=== PATIENT | female | born 1965 | race Caucasian/White ===

== ENCOUNTER → 2017-11-03 09:13 | Outpatient (CLI) | payer OTHER, SELFPAY ==
--- NOTE | 2017-11-03 07:21 | HPBI_ITS ---
MAMMOGRAPHY - BILATERAL SCREENING REASON FOR EXAM: Female, 52 years old. Routine annual screening examination. PERTINENT HISTORY: Personal history of breast cancer. Prior right lumpectomy with radiation and chemotherapy. Right axillary node dissection. TECHNIQUE: Digital bilateral breast pascual (3D mammographic acquisition) in the CC and MLO projections. 2-D mediolateral oblique (MLO) and craniocaudad (CC) views of both breasts were obtained. CAD: Full Field Digital Mammography with Computer Added Detection was performed. COMPARISON: Comparison is made with prior study if every 2016 and October 27, 2015. FINDINGS: Breast Composition: The breasts are heterogeneously dense, which may obscure small masses. There are no dominant masses or suspicious calcifications. Architectural distortion in the deep upper lateral portion of the right breast atypia with prior lumpectomy. Surgical clips are seen in the right axillary region. There has been no change. No other significant abnormalities are identified. There has been no significant change since the prior study. HPBI/SCREENING MAMM (CAD), BILAT IMPRESSION: Stable bilateral screening mammogram. Yearly follow-up mammogram recommended. (A) ASSESSMENT CATEGORY: BIRADS Category 2: Benign. A letter regarding these results will be sent to the patient by the facility within 30 days. Approximately 10% of breast cancers are not detected by mammography. A normal mammogram should not delay biopsy of a clinically suspicious abnormality. [id number] Electronically Signed: Serge Hutchinson MD at 9:58 EST Tel [phone], Service support ,
== END ==
PROVIDERS: Family Provider Family Medicine; PCP Family Medicine; Visit Provider Internal Medicine Hematology & Oncology
DX: Z12.31 Encounter for screening mammogram for malignant neoplasm of breast (principal); C50.411 Malignant neoplasm of upper-outer quadrant of right female breast; Z17.0 Estrogen receptor positive status [ER+]
CPT/HCPCS: 77063; 77067

== ENCOUNTER → 2018-03-22 08:53 | Outpatient (CLI) | payer OTHER, SELFPAY ==
--- NOTE | 2018-03-22 08:57 | BI_ITS ---
STUDY: UNILATERAL DIAGNOSTIC RIGHT MAMMOGRAM REASON FOR EXAM: Female, 53 years old. Follow-up study, redness and fluid drainage at scar site x1 week TECHNIQUE: 2D MLO and cc views along with 3-D pascual synthesis views of the right breast. COMPARISON: 11/03/2017 FINDINGS: Stable appearance of a scar in the upper outer quadrant of the right breast. It has become more organized and less diffuse than on the previous study. Stable architectural distortion from the previous surgery. No new suspicious solid mass. However, because the patient is complaining of redness and fluid drainage in the site of the scar, further evaluation of this area with ultrasound is recommended. BI/DIAG MAMM W/CAD, UNILAT IMPRESSION: No mammographic evidence of abnormality. Further evaluation of the right breast scar with ultrasound recommended as there is redness and fluid drainage here. BIRADS Category 0 Electronically Signed: Jean Harmon MD at 11:38 EDT , Service support ,
--- NOTE | 2018-03-22 08:57 | US_ITS ---
STUDY: ULTRASOUND BREAST - RIGHT REASON FOR EXAM: Female, 53 years old. Skin thickening, tenderness at scar site TECHNIQUE: Axial and longitudinal images of the RIGHT breast were performed with a high resolution ultrasound transducer. COMPARISON: None. FINDINGS: RIGHT Breast: Ultrasound evaluation of the right breast, in the area of concern shows a large area of shadowing measuring 2.7 x 3.4 x 1.8 cm consistent with patient's surgical site as a clip is noted in this area. There is no discrete shadowing solid lesion. There is associated skin thickening and some hyperemia suggesting there is inflammation. US/Breast Limited Unilateral IMPRESSION: Skin thickening and hyperemia at the site of patient's scar suggesting inflammatory process. Recommend short-term follow-up after therapy to assure resolution. No suspicious shadowing solid lesion or calcification ASSESSMENT CATEGORY: BIRADS Category 3: Probably Benign - Short-Interval Follow-up Suggested. A letter regarding these results will be sent to the patient by the facility within 30 days. Electronically Signed: Jean Harmon MD at 10:49 EDT , Service support ,
== END ==
PROVIDERS: Family Provider Family Medicine; PCP Family Medicine; Visit Provider Internal Medicine Hematology & Oncology
DX: C50.411 Malignant neoplasm of upper-outer quadrant of right female breast (principal); Z17.0 Estrogen receptor positive status [ER+]
CPT/HCPCS: 76642; 77061; 77065; G0279

== ENCOUNTER → 2018-08-21 09:34 | Outpatient (CLI) | payer OTHER, SELFPAY ==
--- NOTE | 2018-08-21 08:20 | BRBX_PTH ---
PATIENT: VANESSA PRO LOC: [facility] U#:[id number] AGE/SX: 60/F ROOM: RE08/21/[address]: Dr. Den Childress MD : 1965 BED: DIS: SPEC #: [id number] RECD: 08/21/18 09:36 STATUS: DEEPTHI OLI #: [id number] DEENA: 08/21/18 08:[address]: Den Childress DEPT: SURGICAL PATHOLOGY RECD BY: Koko Poon ENTERED: 08/21/18 13:14 SP TYPE: BREAST BX OTHR DR: Dr. Loyd White MD Tissues: A - Right breast, NOS B - Skin of breast, NOS Procedures: Surgery Specimen Level IV HEADER OPERATION: Excisional biopsy right breast; punch biopsy PRE-OP DIAGNOSIS: Right breast lesion TISSUE SUBMITTED: A - Right breast tissue, B - Punch biopsy right breast ISCHEMIC TIME: 1 minute MICROSCOPIC DIAGNOSIS A. Right breast tissue, excisional biopsy: Chronic inflammation of dermis and subcutaneous tissue. Negative for malignancy. B. Right breast, punch biopsy: Acute and chronic vasculitis. See comment. Negative for malignancy. ANTHONY:eb 08/23/18 COMMENT B. 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 Numerous eosinophils along with plasma cells, neutrophils and polymorphous lymphocytes are present in perivascular distribution with vascular damage in reticular and deep dermis. Correlation with clinical findings and appropriate follow up are necessary. Please make reference to previous specimen ([id number]) right breast, core biopsy with diagnosis of invasive ductal carcinoma and ([id number]) right breast, lumpectomy with needle localization with diagnosis of invasive ductal carcinoma, multifocal. Case has been reviewed in consultation with Dr. Irene who concurs with the above diagnosis. IDC:SJ MICROSCOPIC DESCRIPTION Slides are reviewed. GROSS DESCRIPTION A - Received in fixative is one container labeled with the patient's name and designated right breast. The specimen consists of a wedge-shaped piece of isaac-white skin with underlying tissue measuring 0.5 x 0.5 cm and up to 0.8 cm in thickness. The specimen is inked, bisected and submitted entirely in one cassette. B - Received in fixative is one container labeled with the patient's name and designated right breast punch biopsy. The specimen consists of a punch biopsy of isaac-white skin measuring 0.2 cm in diameter and up to 0.6 cm in length. The entire specimen is submitted in one cassette. / SJ:rg 08/21/18 TC:2 CPT: 27508 x2
== END ==
PROVIDERS: Family Provider Family Medicine; PCP Family Medicine; Referring Provider Surgery; Visit Provider Surgery
DX: S21.001A Unspecified open wound of right breast, initial encounter (principal); N64.89 Other specified disorders of breast
CPT/HCPCS: 87070; 87205; 88305

== ENCOUNTER 2018-11-11 00:57 | Emergency (ER) | payer OTHER, SELFPAY ==
[2018-11-11 00:57] VITALS: BP 153/78; PULSE 94; RESP 16; TEMP 36.9; O2SAT 97; BMI 28.2
[2018-11-11 02:17] LABS: Absolute Neutrophil Count 4.1 X10^3/uL (2.0-7.7); Basophil# 0.02 X10^3/uL; Basophil% 0.4 % (0-1); Eosinophil# 0.04 X10^3/uL; Eosinophils% 0.8 % (0-5); Hematocrit 39.9 % (37-47); Hemoglobin 12.9 g/dl (12.0-15.0); Lymphocyte % 11.3 % (19-41); Mean Corp Hgb Conc 32.3 g/gl (32-36); Mean Corpuscular Hgb 30.1 pg (27.0-32.0); Mean Corpuscular Volume 93.2 fL (81-99); Mean Platelet Vol. 9.2 fl (6.2-12.0); Monocyte# 0.51 X10^3/uL; Monocyte% 9.6 % (0-10); Neutrophil # 4.13 X10^3/uL (2.7-7.7); Neutrophil % 77.7 % (47-70); Platelet Count 230 K/mm3 (150-450); RBC Distribution Width CV 13.5 % (11.6-14.6); RBC Distribution Width SD 44.7 fl (35.1-43.9); Red Blood Count 4.28 M/mm3 (4.2-5.4); White Blood Count 5.3 K/mm3 (4.4-11.0)
[2018-11-11] MEDS: Cefazolin 1 GM/50 ML BAG IV (02:18)
[2018-11-11 02:29] LABS: POSITIVE COUNT NO; POSITIVE DIFFERENTIAL YES; POSITIVE MORPHOLOGY NO
[2018-11-11 02:30] LABS: Differential Indicated SCAN CRITERIA MET
[2018-11-11 02:39] LABS: Anion Gap 6 (5-15); BUN 18 mg/dL (7-18); BUN/Creat Ratio 24.4 RATIO (10-20); Calcium,Total 8.8 mg/dL (8.5-10.1); Chloride 108 mmol/L (98-107); Creatinine, Serum 0.74 mg/dL (0.55-1.02); EST Glomerular Filtration Rate 87 mL/min (>60); Est Glom Filt Rate - Afr Amer 105 mL/min (>60); Estimated Creatinine Clearance 80.41 ml/min; Glucose 98 mg/dL (74-106); Potassium 3.4 mmol/L (3.5-5.1); Sodium Level 140 mmol/L (136-145)
--- NOTE | 2018-11-11 03:04 | ED.DCSUM_ITS ---
History of Present Illness Chief Complaint: Cellulitis Onset: Today Context: Gradual Onset Timing: Continuous Quality: sore Location: right breast Current Severity: Mild Maximum Severity: Mild Worsened by: palpation Associated Symptoms: chills earlier today; otherwise, none. no nipple discharge. Narrative: Patient has a remote history of breast cancer and treatment. She is currently undergoing no treatment. She has had lymphedema of the breast before that she usually can treat herself, she felt some swelling and thought that is what it was earlier until she looked at her breast and noticed it was very red around the outside of it. A few hours later the redness had spread to more of the breast. She denies any systemic symptoms at this time, had some chills earlier in the day but they resolved. - Past Medical History (1) Breast cancer Status: Chronic Past Medical History - Allergies and Home Meds Allergies/Adverse Reactions: Allergies exemestane Allergy (Mild, Verified 11/11/18 01:02) rash Penicillins Allergy (Verified 11/11/18 01:02) Rash Primary Care Physician: Francisco White MD [Primary Care Provider] - Surgical History: - - Right breast lumpectomy Lives: Spouse/ Significant Other Smoking Status: Never smoker Review of Systems General: Reports: Chills. Denies: Fever, Malaise Respiratory: Denies: Dyspnea, Cough Gastrointestinal: Denies: Nausea, Vomiting, Diarrhea Skin: Reports: Rash - Redness right breast Physical Exam Vital Signs/Narrative: Vital Signs Temp Pulse Resp BP Pulse Ox 11/11/18 00:57 98.4 F 94 16 153/78 H 97 Inital Vital Signs reviewed: Yes General: Well nourished, Well developed, No Acute Distress Head: Normocephalic, Atraumatic Skin: No Trauma, Rash - Patchy tender blanching erythema throughout the right breast. Areola appears to be spared, there is no nipple discharge. There is no palpable abscess. There is no lymphangitis. There are no bullae or other lesions. There is no peau d'orange appearance or other dimpling of the breast. Neurological: Alert, Oriented x3, Cranial nerves II-XII grossly intact, Normal Strength, Normal Sensation, Normal Gait Psychological: Normal affect, Normal Mood Diagnostic/Tx/Re-eval Laboratory Results 11/11/18 11/11/18 02:10 02:10 WBC 5.3 RBC 4.28 Hgb 12.9 Hct 39.9 MCV 93.2 MCH 30.1 MCHC 32.3 RDW 13.5 RDW Differential 44.7 H Plt Count 230 MPV 9.2 Immature Gran % (Auto) 0.200 Neut % (Auto) 77.7 H Lymph % (Auto) 11.3 L [place] % (Auto) 9.6 Eos % (Auto) 0.8 Baso % (Auto) 0.4 Absolute Neuts (auto) 4.1 Absolute Lymphs (auto) 0.60 L Total Counted Not Reportable Sodium 140 Potassium 3.4 L Chloride 108 H Carbon Dioxide 26.0 Anion Gap 6 BUN 18 Creatinine 0.74 Estim Creat Clear Calc 80.41 Est GFR (MDRD) Af Amer 105 Est GFR (MDRD) Non-Af 87 BUN/Creatinine Ratio 24.4 H Glucose 98 Calcium 8.8 - Medical Decision Making Labs show a very normal white blood count of 5.3, there is a slight leftward shift, no bandemia. This has the appearance like it is infection, I think the patient is right. She thinks she has cellulitis and I agree. We did discuss the possibility of inflammatory breast cancer/recurrence, and the need for close outpatient follow-up. There is no sign of an abscess and I do not think she has to be admitted at this time. She was given a dose of IV Ancef. On reevaluation, there has been no significant spread of the cellulitis compared to my initial evaluation. Prescribed cephalexin which she has taken successfully in the past, and although she has a penicillin allergy she had no reaction to the Ancef. Advised to follow-up after the weekend with her doctor and she is amenable and agrees with the plan. ED Disposition - Plan for ED Patient: Disposition: Home or Assisted Living Diagnosis: Cellulitis of right breast Instructions: Discharge Instructions for Cellulitis, ED Breast Infec Prescriptions: Cephalexin [Keflex] 500 mg PO Q6 #40 capsule Referrals: Francisco White MD [Primary Care Provider] - (2-3 days)
[2018-11-11 03:09] VITALS: BP 148/78; PULSE 86; RESP 16; O2SAT 98
== END 2018-11-11 03:11 | disposition home or self-care (01) ==
PROVIDERS: Emergency Provider Emergency Medicine; Family Provider Family Medicine; PCP Family Medicine
DX: N61.0 Mastitis without abscess (principal); Z85.3 Personal history of malignant neoplasm of breast
CPT/HCPCS: 80048; 85025; 96365; 99284; J7050; A4216

== ENCOUNTER → 2018-11-21 07:20 | Outpatient (CLI) | payer OTHER, SELFPAY ==
[2018-11-11 00:57] VITALS: BMI 28.2
--- NOTE | 2018-11-21 06:59 | BI_ITS ---
MAMMOGRAPHY - BILATERAL SCREENING REASON FOR EXAM: Female, 53 years old. Routine annual screening examination. PERTINENT HISTORY: Personal history of breast cancer. Prior right lumpectomy with radiation and chemotherapy. TECHNIQUE: Digital bilateral breast pascual (3D mammographic acquisition) in the CC and MLO projections. 2-D mediolateral oblique (MLO) and craniocaudad (CC) views of both breasts were obtained. CAD: Full Field Digital Mammography with Computer Added Detection was performed. COMPARISON: Comparison is made with prior study dated November 03, 2017 and March 22, 2018. FINDINGS: Breast Composition: The breasts are heterogeneously dense, which may obscure small masses. There are no dominant masses or suspicious calcifications. The patient status post lumpectomy in the upper deep lateral portion of the right breast with resultant architectural distortion and breast deformity. Surgical clips are also seen in the right axillary region. There has been essentially no change. Stable appearance of the bilateral axillary lymph nodes. No other significant abnormalities are identified. There has been no significant change since the prior study. BI/SCREENING MAMM (CAD), BILAT IMPRESSION: Stable bilateral screening mammogram. Yearly follow-up mammogram recommended. (A) ASSESSMENT CATEGORY: BIRADS Category 2: Benign. A letter regarding these results will be sent to the patient by the facility within 30 days. Approximately 10% of breast cancers are not detected by mammography. A normal mammogram should not delay biopsy of a clinically suspicious abnormality. [id number] Electronically Signed: Serge Hutchinson, at 9:42 EDT , Service support ,
== END ==
PROVIDERS: Family Provider Family Medicine; PCP Family Medicine; Referring Provider Nurse Practitioner; Visit Provider Nurse Practitioner
DX: Z12.31 Encounter for screening mammogram for malignant neoplasm of breast (principal); C50.411 Malignant neoplasm of upper-outer quadrant of right female breast; Z17.0 Estrogen receptor positive status [ER+]
CPT/HCPCS: 77062; 77067; G0279

== ENCOUNTER → 2019-03-14 11:35 | Outpatient (CLI) | payer OTHER, SELFPAY ==
[2019-03-14 14:37] LABS: Cholesterol 206 mg/dL (200); High Density Lipoprotein 68 mg/dL; Thyroid Stim Hormone (TSH) 1.09 uIU/mL (0.358-3.74); Triglycerides 133 mg/dL; Very Low Density Lipoprotein 27 mg/dL (5-40)
[2019-03-14 14:39] LABS: Vitamin D,25 Hydroxy 31.8 ng/mL (29.95-100.01)
== END ==
PROVIDERS: Family Provider Family Medicine; PCP Family Medicine; Referring Provider Family Medicine; Visit Provider Family Medicine
DX: Z13.220 Encounter for screening for lipoid disorders (principal); Z13.29 Encounter for screening for other suspected endocrine disorder; Z13.21 Encounter for screening for nutritional disorder
CPT/HCPCS: 36415; 80061; 82306; 84443

== ENCOUNTER → 2019-11-23 07:46 | Outpatient (CLI) | payer OTHER, SELFPAY ==
--- NOTE | 2019-11-23 08:11 | BI_ITS ---
MAMMOGRAPHY - BILATERAL SCREENING REASON FOR EXAM: Female, 54 years old. Routine annual screening examination. PERTINENT HISTORY: Personal history of breast cancer. Prior right lumpectomy with radiation and chemotherapy. TECHNIQUE: Digital bilateral breast vicenta (3D mammographic acquisition) in the CC and MLO projections. 2-D mediolateral oblique (MLO) and craniocaudad (CC) views of both breasts were obtained. CAD: Full Field Digital Mammography with Computer Added Detection was performed. COMPARISON: Comparison is made with prior examination dated November 21, 2018 and March 22, 2018. FINDINGS: Breast Composition: The breasts are heterogeneously dense, which may obscure small masses. There are no dominant masses or suspicious calcifications. Once again, the patient is status post lumpectomy in the upper deep lateral portion of the right breast. Stable resultant architectural distortion at the surgical site as well as breast deformity. Surgical clips are also seen in the right axillary region. There has been no change. No other significant abnormalities are identified. There has been no significant change since the prior study. BI/SCREEN MAMM (CAD) W/VICENTA BILAT IMPRESSION: Stable bilateral screening mammogram. Yearly follow-up mammogram recommended. (A) ASSESSMENT CATEGORY: BIRADS Category 2: Benign. A letter regarding these results will be sent to the patient by the facility within 30 days. Approximately 10% of breast cancers are not detected by mammography. A normal mammogram should not delay biopsy of a clinically suspicious abnormality. [id number] Electronically Signed: Serge Hutchinson, at 9:31 EDT , Service support ,
== END ==
PROVIDERS: PCP Family Medicine; Referring Provider Internal Medicine Hematology & Oncology; Visit Provider Internal Medicine Hematology & Oncology
DX: Z12.31 Encounter for screening mammogram for malignant neoplasm of breast (principal); C50.411 Malignant neoplasm of upper-outer quadrant of right female breast; Z17.0 Estrogen receptor positive status [ER+]
CPT/HCPCS: 77063; 77067

== ENCOUNTER → 2020-11-24 07:01 | Outpatient (CLI) | payer OTHER, SELFPAY ==
--- NOTE | 2020-11-24 07:04 | BI_ITS ---
MAMMOGRAPHY - BILATERAL SCREENING REASON FOR EXAM: Female, 55 years old. Routine annual screening examination. PERTINENT HISTORY: Personal history of breast cancer. Prior right lumpectomy with radiation and chemotherapy. Occasional tenderness. TECHNIQUE: Digital bilateral breast vicenta (3D mammographic acquisition) in the CC and MLO projections. 2-D mediolateral oblique (MLO) and craniocaudad (CC) views of both breasts were obtained. CAD: Full Field Digital Mammography with Computer Added Detection was performed. COMPARISON: Comparison is made with prior study of 11/23/2019 and 11/21/2018. FINDINGS: Breast Composition: The breasts are heterogeneously dense, which may obscure small masses. There are no dominant masses or suspicious calcifications. Stable architectural deformity and postoperative changes in the axillary region of the right breast with the skin thickening. Surgical clips are seen in the right axillary region. No other significant abnormalities are identified. There has been no significant change since the prior study. BI/SCRN MAMM (CAD)W/VICENTA BILAT IMPRESSION: Stable bilateral screening mammogram. Yearly follow-up mammogram recommended. (A) ASSESSMENT CATEGORY: BIRADS Category 2: Benign. A letter regarding these results will be sent to the patient by the facility within 30 days. Approximately 10% of breast cancers are not detected by mammography. A normal mammogram should not delay biopsy of a clinically suspicious abnormality. [id number] Electronically Signed: Serge Hutchinson MD at 8:32 EDT , Service support ,
== END ==
PROVIDERS: PCP Family Medicine; Referring Provider Nurse Practitioner; Visit Provider Nurse Practitioner
DX: Z12.31 Encounter for screening mammogram for malignant neoplasm of breast (principal)
CPT/HCPCS: 77063; 77067

== ENCOUNTER → 2021-03-10 12:12 | Outpatient (CLI) | payer OTHER, SELFPAY ==
[2021-03-10 15:24] LABS: Hemoglobin 13.5 g/dL (12.0-15.0); Mean Corp Hgb Conc 32.9 g/dL (32-36); Mean Corpuscular Hgb 30.1 pg (27.0-32.0); Mean Corpuscular Volume 91.5 fL (81-99); Mean Platelet Vol. 9.5 fl (6.2-12.0); Platelet Count 301 K/mm3 (150-450); RBC Distribution Width CV 12.9 % (11.6-14.6); Red Blood Count 4.48 M/mm3 (4.2-5.4); White Blood Count 6.2 K/mm3 (4.4-11.0)
[2021-03-10 15:38] LABS: Vitamin D,25 Hydroxy 35.2 ng/mL
[2021-03-10 15:49] LABS: Anion Gap 6 (5-15); BUN 19 mg/dL (7-18); BUN/Creat Ratio 25.7 RATIO (10-20); Calcium,Total 10.7 mg/dL (8.5-10.1); Chloride 105 mmol/L (98-107); Cholesterol 199 mg/dL (200); Creatinine, Serum 0.74 mg/dL (0.55-1.02); EST Glomerular Filtration Rate 86 mL/min (>60); Est Glom Filt Rate - Afr Amer 104 mL/min (>60); Glucose 75 mg/dL (74-106); High Density Lipoprotein 71 mg/dL; Potassium 3.8 mmol/L (3.5-5.1); Sodium Level 136 mmol/L (136-145); Thyroid Stim Hormone (TSH) 1.13 uIU/mL (0.358-3.74); Triglycerides 118 mg/dL; Very Low Density Lipoprotein 24 mg/dL (5-40)
[2021-03-12 20:11] LABS: Endomysial Antibody IgA Negative (Negative)
[2021-03-13 08:19] LABS: Deamidated Gliadin IgA 4 units (0-19); Deamidated Gliadin IgG 2 units (0-19); Immunoglobulin A 366 mg/dL (87-352); t-Transglutaminase IgA <2 U/mL (0-3)
[2021-03-14 20:08] LABS: Beef <0.10 kU/L (Class 0); Corn <0.10 kU/L (Class 0); Egg, Whole <0.10 kU/L (Class 0); Milk (Cow) <0.10 kU/L (Class 0); Peanut <0.10 kU/L (Class 0); Pork <0.10 kU/L (Class 0); Soybean <0.10 kU/L (Class 0); Wheat <0.10 kU/L (Class 0)
[2021-03-15 07:32] LABS: Chocolate <0.10 kU/L (Class 0)
== END ==
PROVIDERS: PCP Family Medicine; Referring Provider Family Medicine; Visit Provider Family Medicine
DX: R14.0 Abdominal distension (gaseous) (principal); C50.911 Malignant neoplasm of unspecified site of right female breast; Z13.220 Encounter for screening for lipoid disorders; Z13.21 Encounter for screening for nutritional disorder; Z13.1 Encounter for screening for diabetes mellitus
CPT/HCPCS: 36415; 80048; 80061; 82306; 82784; 83516; 84443; 85027; 86003; 86005; 86255

== ENCOUNTER → 2021-04-01 08:03 | Outpatient (CLI) | payer OTHER, SELFPAY ==
--- NOTE | 2021-04-01 08:15 | BD_ITS ---
STUDY: DUAL ENERGY X-RAY ABSORPTIOMETRY / DXA REASON FOR EXAM: Female, 56 years old. C50.911. Patient is postmenopausal. TECHNIQUE: Bone Mineral Density (BMD) measurements of lumbar spine and bilateral hips were obtained. COMPARISON: None. FINDINGS: Lumbar Spine (L1-L4): g/cm2 (0.764) / T-score (-2.6) / Z-score (-1.3) Findings are suggestive of osteoporosis with a high fracture risk. Left Femur Total: g/cm2 (0.867) / T-score (-0.6) / Z-score (0.2) Left Femoral Neck: g/cm2 (0.659) / T-score (-1.7) / Z-score (-0.5) Right Femur Total: g/cm2 (0.899) / T-score (-0.4) / Z-score (0.5) Right Femoral Neck: g/cm2 (0.703) / T-score (-1.3) / Z-score (-0.1) BD/Dexa Bone Density Study IMPRESSION: The patient is considered osteoporotic as outlined below according to World [employer] Organization (WHO) criteria with a high fracture risk. Reference Information: The T-score is the number of standard deviations above or below the standard which is normal for young adults at their peak bone mineral density. The World Health Organization (WHO) interprets the T-scores as follows: Above -1 Normal bone density Between -1 and -2.5 Osteopenia Equal to / or below -2.5 Osteoporosis As a practical clinical guideline, osteopenia may be graded as follows: Mild -1 through -1.5 Moderate -1.6 through -2.0 Severe -2.1 through -2.4 The Z-score is the number of standard deviations above or below age-matched controls. A Z-score of less than -1.5 would be considered abnormal. References: 1. NIH Osteoporosis and Related Bone Diseases www osteo.org 2. International Society for Clinical Densitometry www iscd.org 3. National Osteoporosis Foundation www nof.org Electronically Signed: Serge Hutchinson MD at 14:48 EDT , Service support ,
== END ==
PROVIDERS: PCP Family Medicine; Referring Provider Family Medicine; Visit Provider Family Medicine
DX: C50.911 Malignant neoplasm of unspecified site of right female breast (principal)
CPT/HCPCS: 77080

== ENCOUNTER → 2021-04-20 11:42 | Outpatient (CLI) | payer OTHER, SELFPAY ==
[2021-04-20 15:30] LABS: Anion Gap 7 (5-15); BUN 20 mg/dL (7-18); BUN/Creat Ratio 31.8 RATIO (10-20); Calcium,Total 10.3 mg/dL (8.5-10.1); Chloride 108 mmol/L (98-107); Creatinine, Serum 0.63 mg/dL (0.55-1.02); EST Glomerular Filtration Rate 104 mL/min (>60); Est Glom Filt Rate - Afr Amer 125 mL/min (>60); Glucose 76 mg/dL (74-106); Phosphorus 3.5 mg/dL (2.5-4.9); Potassium 3.9 mmol/L (3.5-5.1); Sodium Level 140 mmol/L (136-145)
[2021-04-20 15:46] LABS: Vitamin D,25 Hydroxy 53.2 ng/mL
[2021-04-21 08:05] LABS: PTHIN 23.2 pg/mL (18.4-80.1)
== END ==
PROVIDERS: PCP Family Medicine; Referring Provider Family Medicine; Visit Provider Family Medicine
DX: R14.0 Abdominal distension (gaseous) (principal)
CPT/HCPCS: 36415; 80048; 82306; 82330; 83735; 83970; 84100

== ENCOUNTER 2021-05-08 05:50 | Day surgery (SDC) | payer OTHER, SELFPAY ==
[2021-04-06 14:10] VITALS: BMI 28.9
[2021-05-08] VITALS (15 sets, daily range): BP systolic 105–138; BP diastolic 63–99; PULSE 71–87; RESP 16–18; TEMP 36–36.6; O2SAT 95–100; BMI 28.0
[2021-05-08] MEDS: Lactated Ringers 1,000 ML 100 ML IV (06:05)
--- NOTE | 2021-05-08 06:16 | HP.PCM_ITS ---
History and Physical Date of Admission: 05/08/21 Intake Visit Reasons: C-Scope Consult Chief Complaint: colonoscopy, hx colectomy Operations Lieutenant Required: No Is patient in pain?: No Allergies exemestane Allergy (Mild, Verified 04/06/21 14:11) rash Penicillins Allergy (Verified 04/06/21 14:11) Rash Medications L.acidoph, paracasei,B. lactis 1 ea PO DAILY 10/21/15 [History Confirmed 04/06/21] calcium carbonate-vitamin D3 1 ea PO DAILY 10/21/15 [History Confirmed 04/06/21] multivitamin 1 ea PO DAILY 10/21/15 [History Confirmed 04/06/21] turmeric root extract 500 mg capsule 500 mg PO DAILY 04/19/18 [History Confirmed 04/06/21] ascorbic acid (vitamin C) 500 mg tablet 500 mg PO DAILY 04/06/21 [History Confirmed 04/06/21] loratadine 10 mg tablet 10 mg PO DAILY 04/06/21 [History Confirmed 04/06/21] Is last menstrual period known: No Post menopausal: Yes Patient : No PFSH Medical History Breast cancer Diverticulosis Hemorrhoid Lymphangitis Personal history of breast cancer Skin lesion of breast Surgical History History of breast biopsy History of colectomy (~01/2016) History of colonoscopy History of dilation and curettage History of lumpectomy of right breast (~09/2015) History of tonsillectomy Family History (Updated 04/06/21 @ 14:14 by Lilia Keating) Father Diabetes Hypertension Heart disease Mother Heart disease Grandmother Cancer esophagus Brother Cancer skin Social History Smoking Status: Never smoker HPI HPI HPI: VANESSA PRO, is a 56 F who presents to the office today for screening colonoscopy. January 2016 the patient had a laparoscopic sigmoid colectomy performed elsewhere with findings consistent with diverticulitis. The patient thinks that she has had a couple polyps removed in the past. Her most recent colonoscopy was June 21, 2016. Diverticular disease was identified at that time. A patent colorectal anastomosis. Recommendations were for follow-up colonoscopy at 5 years. She denies any family history of colon cancer She denies any bright red blood per rectum or melena. No current abdominal pain. She has not had any bouts of recurrent diverticulitis. She did have stricturing at that time and perforation that required the resection. ROS General General: Yes weight change and breast cancer; No appetite, fatigue, colon cancer or weakness HEENT HEENT: No difficulty swallowing, eye injury, eye surgery, swollen glands or hoarseness Endo Endocrine: No thyroid disease, diabetes mellitus, thyroid cancer, Hair loss, heat intolerance or cold intolerance Musc Musculoskeletal: No back problems, arthritis, rheumatoid arthritis, gout or joint pain Cardio Cardiovascular: No murmur, pacemaker, heart disease, atrial fibrillation, high blood pressure, heart attack, heart stent, palpitations, shortness of breat with exertion or chest pain Psych Psychiatric: No depression, anxiety or hearing voices Resp Respiratory: No shortness of breath, No sleep apnea, No cough, No COPD, No asthma, No emphysema and No wheezing Gastro Gastrointestinal: No abdominal pain, No nausea or vomiting, No diarrhea, No constipation, No blood in stool, No acid reflux, Yes hemorrhoids, No ulcers, No gallbladder problem and No black,tarry stools Colin Hematologic: No blood thinners, No blood disorders, No bleeding, No anemia and No blood clots Neuro Neurologic: No weakness Exam Const General: cooperative, healthy appearing, comfortable and no acute distress Nutritional Appearance: average body habitus Orientation: alert and awake Neck Neck: normal visual inspection Resp Effort & Inspection: normal respiratory effort Auscultation: clear to auscultation bilaterally Cardio Rate: regular rate Rhythm: regular rhythm GI Palpation: soft and no hepatosplenomegaly Musc Cervical Spine: normal cervical lordosis Neuro General: patient alert and patient awake Extrem General: no calf tenderness Psych Appearance: grossly normal COVID (Procedure Consent) Procedure Criteria Procedure Criteria: Yes Elective The surgeon/proceduralist and patient have discussed in detail the risk of exposure to and/or potential harm posed by the COVID-19 virus with having a surgery/procedure at this time versus the risk of delaying the surgery/procedure. It is not possible to know either the risk of delaying the surgery or procedure or chance of getting an infection with perfect accuracy, but a joint decision was made between the patient and the surg allen/proceduralist to proceed at this time with the scheduled surgery/procedure as indicated on the consent form. Assessment and Plan Assessment and Plan (1) History of diverticulitis: Status: Acute Plan - Dr. Den Childress MD: 56-year-old female. She has a previous history of perforated sigmoid diverticulitis requiring emergency laparoscopic sigmoid colectomy with low anastomosis. Recommendations were for follow-up colonoscopy at 5 years. Fortunately she is remained asymptomatic. No family history of colon cancer. I recommend for her colonoscopy with possible biopsy or polypectomy as indicated. She is aware of the technique, benefit, risk of alternatives. She has had an opportunity to ask and have questions answered. As noted previous colonoscopy was May 2016. I appreciate the opportunity of assisting with her surgical care. Copy: Dr. Loyd Childress M.D., F.A.C.S. I have re-examined the patient. There are no clinical changes since date of exam. Den Childress M.D., F.A.C.S.
--- NOTE | 2021-05-08 07:00 | COLBX_PTH ---
PATIENT: VANESSA PRO LOC: [facility] U#:[id number] AGE/SX: 56/F ROOM: RE05/08/[address]: Dr. Den Childress MD : 1965 BED: DIS: 05/08/2021 SPEC #: [id number] RECD: 05/08/21 11:00 STATUS: DEEPTHI BAIRD #: [id number] DEENA: 05/08/21 07:[address]: Den Childress DEPT: SURGICAL PATHOLOGY RECD BY: Salima Taveras ENTERED: 05/08/21 11:28 SP TYPE: COLON BX OTHR DR: Dr. Loyd White MD Tissues: A - Cecum, NOS B - Sigmoid colon biopsy Procedures: Surgery Specimen Level IV HEADER OPERATION: Colonoscopy (MOD) PRE-OP DIAGNOSIS: History of diverticulitis TISSUE SUBMITTED: A. Cecum polyp biopsy, B. Sigmoid polyp biopsy MICROSCOPIC DIAGNOSIS A. Cecum polyp, biopsy: A fragment of colonic mucosa, no pathologic diagnosis. B. Sigmoid polyp, biopsy: Fragments of colonic mucosa, no pathologic diagnosis. ANTHONY:eb 05/11/2021 MICROSCOPIC DESCRIPTION Slides are reviewed. GROSS DESCRIPTION A - Received in fixative is one container labeled with the patient's name and designated cecum polyp biopsy. The specimen consists of one irregular fragment of light isaac soft tissue that measures 0.3 x 0.3 x 0.1 cm. The specimen is totally submitted in one cassette. B - Received in fixative is one container labeled with the patient's name and designated sigmoid polyp biopsy. The specimen consists of two irregular fragments of light isaac soft tissue that in aggregate measure 0.5 x 0.3 x 0.1 cm. The specimen is totally submitted in one cassette. / AM:eb 05/08/21 TC:4 [facility]: [id number] x2
[2021-05-08] MEDS: Midazolam 5 MG/ML Syringe (07:14)
--- NOTE | 2021-05-08 08:31 | OP.COLON_ITS ---
Patient Name: Jyothi Alvarez Procedure Date: 05/08/2021 7:06 AM Date of : 1965 Age: 56 Procedure: Colonoscopy Indications: Diverticulosis of the colon Providers: Den Childress MD Medicines: See the Anesthesia note for documentation of the administered medications Patient Profile: Last Colonoscopy: May 2016. Complications: No immediate complications. Procedure: Pre-Anesthesia Assessment: - Prior to the procedure, a History and Physical was performed, and patient medications and allergies were reviewed. The patient's tolerance of previous anesthesia was also reviewed. The risks and benefits of the procedure and the sedation options and risks were discussed with the patient. All questions were answered, and informed consent was obtained. Prior Anticoagulants: The patient has taken no previous anticoagulant or antiplatelet agents. ASA Grade Assessment: II - A patient with mild systemic disease. After reviewing the risks and benefits, the patient was deemed in satisfactory condition to undergo the procedure. After I obtained informed consent, the scope was passed under direct vision. Throughout the procedure, the patient's blood pressure, pulse, and oxygen saturations were monitored continuously. The Colonoscope was introduced through the anus and advanced to the cecum, identified by appendiceal orifice and ileocecal valve. The colonoscopy was performed without difficulty. The patient tolerated the procedure well. The quality of the bowel preparation was good. The ileocecal valve and the appendiceal orifice were photographed. Scope In: 8:13:55 AM Scope Withdrawal Time 0 hours 7 minutes 52 seconds Scope Out: 8:25:17 AM Total Procedure Duration Time 0 hours 11 minutes 22 seconds Findings: The perianal and digital rectal examinations were normal. A 3 mm polyp was found in the cecum. The polyp was sessile. The polyp was removed with a cold biopsy forceps. Resection and retrieval were complete. A 3 mm polyp was found in the mid sigmoid colon. The polyp was sessile. The polyp was removed with a cold biopsy forceps. Resection and retrieval were complete. There was evidence of a prior end-to-end colo-colonic anastomosis in the distal sigmoid colon. This was patent. Multiple diverticula were found in the entire colon. Impression: - One 3 mm polyp in the cecum, removed with a cold biopsy forceps. Resected and retrieved. - One 3 mm polyp in the mid sigmoid colon, removed with a cold biopsy forceps. Resected and retrieved. - Patent end-to-end colo-colonic anastomosis. - Diverticulosis in the entire examined colon. Recommendation: - Discharge patient to home. - Resume previous diet. - Continue present medications. - Repeat colonoscopy in 10 years for surveillance based on pathology results. - Telephone my office for pathology results in 1 week. Procedure Code(s): --- Professional --- 78320, Colonoscopy, flexible; with biopsy, single or multiple Diagnosis Code(s): --- Professional --- D12.0, Benign neoplasm of cecum D12.5, Benign neoplasm of sigmoid colon Z98.0, Intestinal bypass and anastomosis status K57.30, Diverticulosis of large intestine without perforation or abscess without bleeding CPT copyright 2017 [employer]. All rights reserved. The codes documented in this report are preliminary and upon clinical quality assurance specialist review may be revised to meet current compliance requirements. Den Childress MD 05/08/2021 8:31:36 AM This report has been signed electronically. Number of Addenda: 0 Note Initiated On: 05/08/2021 7:06 AM
--- NOTE | 2021-05-08 08:32 | OP.CCLET_ITS ---
05/08/2021 Francisco White [address] [place] [address] Re : Colonoscopy procedure for Jyothi Alvarez Dear Dr. White This procedure was performed on Saturday, May 08, 2021. My impressions and recommendations are as follows: Impressions : - One 3 mm polyp in the cecum, removed with a cold biopsy forceps. Resected and retrieved. - One 3 mm polyp in the mid sigmoid colon, removed with a cold biopsy forceps. Resected and retrieved. - Patent end-to-end colo-colonic anastomosis. - Diverticulosis in the entire examined colon. Recommendations : - Discharge patient to home. - Resume previous diet. - Continue present medications. - Repeat colonoscopy in 10 years for surveillance based on pathology results. - Telephone my office for pathology results in 1 week. My findings are described in the full procedure note, which is enclosed. If I can be of further assistance, please feel free to contact me at Doctor phone number(s): Work: . Sincerely, Den Childress MD 05/08/2021 8:31:36 AM This report has been signed electronically.
== END 2021-05-08 09:28 | disposition home or self-care (01) ==
LOC: EN 05:53 → AC 05:53
PROVIDERS: PCP Family Medicine; Referring Provider Family Medicine; Visit Provider Surgery
PROC: 0DJD8ZZ Inspection of Lower Intestinal Tract, Via Natural or Artificial Opening Endoscopic (ICD-10-PCS; CPT 45378; principal; 2021-05-08 10:45)
DX: D12.0 Benign neoplasm of cecum (principal); D12.5 Benign neoplasm of sigmoid colon; K57.30 Diverticulosis of large intestine without perforation or abscess without bleeding; Z98.0 Intestinal bypass and anastomosis status; Z79.899 Other long term (current) drug therapy; Z85.3 Personal history of malignant neoplasm of breast
CPT/HCPCS: 45380; 88305; J7120

== ENCOUNTER → 2021-05-12 12:05 | Outpatient (CLI) | payer OTHER, SELFPAY ==
[2021-05-12 15:31] LABS: Vitamin D,25 Hydroxy 60.4 ng/mL
[2021-05-12 15:39] LABS: PTHIN 25.7 pg/mL (18.4-80.1)
== END ==
PROVIDERS: PCP Family Medicine; Referring Provider Family Medicine; Visit Provider Family Medicine
DX: E83.52 Hypercalcemia (principal)
CPT/HCPCS: 36415; 82306; 82652; 83970

== ENCOUNTER → 2021-06-02 12:09 | Outpatient (CLI) | payer OTHER, SELFPAY ==
[2021-06-08 14:09] LABS: PROEL- A/G Ratio 1.2 (0.7-1.7); PROEL- Albumin 4.2 g/dL (2.9-4.4); PROEL- Alpha-1 Globulin 0.2 g/dL (0.0-0.4); PROEL- Alpha-2 Globulin 0.9 g/dL (0.4-1.0); PROEL- Beta Globulin 1.3 g/dL (0.7-1.3); PROEL- Gamma Globulin 1.2 g/dL (0.4-1.8); PROEL- Globulin, Total 3.6 g/dL (2.2-3.9); PROEL- TOTAL PROTEIN 7.8 g/dL (6.0-8.5); PROELU- Albumin, Urine 44.8 % (.); PROELU- Alpha-1-Globulin,Ur 5.8 % (.); PROELU- Alpha-2-Globulin,Ur 20.1 % (.); PROELU- Beta Globulin, Ur 20.6 % (.); PROELU- Gamma Globulin, Ur 8.7 % (.); Total Protein, Ur 9.7 mg/dL (Not Estab.)
== END ==
PROVIDERS: PCP Family Medicine; Referring Provider Family Medicine; Visit Provider Family Medicine
DX: E83.52 Hypercalcemia (principal)
CPT/HCPCS: 36415; 84165; 84166

== ENCOUNTER → 2021-06-03 16:42 | Outpatient (CLI) | payer OTHER, SELFPAY ==
[2021-06-03 18:16] LABS: 24HR. Urine Creatinine 1.33 g/24 HR (0.70-1.90)
== END ==
PROVIDERS: PCP Family Medicine; Referring Provider Family Medicine; Visit Provider Family Medicine
DX: E83.52 Hypercalcemia (principal)
CPT/HCPCS: 81050; 82570

== ENCOUNTER → 2021-06-09 12:18 | Outpatient (CLI) | payer OTHER, SELFPAY ==
[2021-06-09 15:26] LABS: (24 HR) Urine Calcium 151.2 mg/24 HR (42.0-353.0); 24HR UR TOTAL VOLUME 2700 ml; Calcium Urine pH Range 2; Urine Calcium (Random) 5.6 (Not Estab.)
== END ==
PROVIDERS: PCP Family Medicine; Referring Provider Family Medicine; Visit Provider Family Medicine
DX: E83.52 Hypercalcemia (principal)
CPT/HCPCS: 81050; 82340

== ENCOUNTER 2021-11-25 07:06 | Outpatient (CLI) | payer OTHER, SELFPAY ==
--- NOTE | 2021-11-25 07:10 | BI_ITS ---
MAMMOGRAPHY - BILATERAL SCREENING REASON FOR EXAM: Female, 56 years old. Routine annual screening examination. PERTINENT HISTORY: Personal history of breast cancer. Prior right lumpectomy with chemotherapy and radiation therapy. TECHNIQUE: Digital bilateral breast vicenta (3D mammographic acquisition) in the CC and MLO projections. 2-D mediolateral oblique (MLO) and craniocaudad (CC) views of both breasts were obtained. CAD: Full Field Digital Mammography with Computer Added Detection was performed. COMPARISON: Comparison is made with prior study dated 11/24/2020 and 11/23/2019. FINDINGS: Breast Composition: The breasts are heterogeneously dense, which may obscure small masses. There are no dominant masses or suspicious calcifications. The patient is status post lumpectomy in the deep upper lateral aspect of the right breast with resultant breast deformity and postoperative scarring. Surgical clips are also seen in the axillary region of the breast. No other significant abnormalities are identified. There has been no significant change since the prior study. BI/SCRN MAMM (CAD)W/VICENTA BILAT IMPRESSION: Stable bilateral screening mammogram. Yearly follow-up mammogram recommended. (A) ASSESSMENT CATEGORY: BIRADS Category 2: Benign. A letter regarding these results will be sent to the patient by the facility within 30 days. Approximately 10% of breast cancers are not detected by mammography. A normal mammogram should not delay biopsy of a clinically suspicious abnormality. [id number] Electronically Signed: Serge Hutchinson MD at 8:23 EDT ,
== END 2021-11-25 23:59 | disposition home or self-care (01) ==
LOC: OPBI 07:07
PROVIDERS: PCP Family Medicine; Visit Provider Nurse Practitioner
DX: Z12.31 Encounter for screening mammogram for malignant neoplasm of breast (principal)
CPT/HCPCS: 77063; 77067

== ENCOUNTER 2021-12-04 10:14 | Outpatient (CLI) | payer OTHER, SELFPAY ==
[2021-12-04 10:37] VITALS: BP 134/83; PULSE 74; RESP 16; TEMP 36.6; O2SAT 98; BMI 29.0
[2021-12-04] MEDS: 0.9% NaCl Peripheral Flush Adult/Peds IV ×2 (10:52→11:24)
[2021-12-04] MEDS: Zoledronic Acid 5 MG 100 ML 300 MG IV (10:54)
[2021-12-04 11:33] VITALS: BP 135/73; PULSE 78; TEMP 36
== END 2021-12-04 23:59 | disposition home or self-care (01) ==
LOC: MEDOUTP 10:16
PROVIDERS: PCP Family Medicine; Referring Provider Internal Medicine Endocrinology, Diabetes & Metabolism; Visit Provider Internal Medicine Endocrinology, Diabetes & Metabolism
DX: M81.0 Age-related osteoporosis without current pathological fracture (principal)
CPT/HCPCS: 96365; A4216; J3489

== ENCOUNTER → 2022-06-01 | Outpatient (CLI) | payer OTHER, SELFPAY ==
[2022-06-01 15:46] LABS: Vitamin D,25 Hydroxy 36.6 ng/mL
[2022-06-01 15:58] LABS: PTHIN 81.9 pg/mL (18.4-80.1)
[2022-06-01 16:36] LABS: Anion Gap 11 (5-15); BUN 17 mg/dL (7-18); Calcium,Total 9.7 mg/dL (8.5-10.1); Chloride 106 mmol/L (98-107); Cholesterol 203 mg/dL (200); Creatinine, Serum 0.66 mg/dL (0.55-1.02); EST Glomerular Filtration Rate 98 mL/min (>60); Est Glom Filt Rate - Afr Amer 119 mL/min (>60); Glucose 84 mg/dL (74-106); High Density Lipoprotein 60 mg/dL; Potassium 3.8 mmol/L (3.5-5.1); Sodium Level 139 mmol/L (136-145); Thyroid Stim Hormone (TSH) 1.31 uIU/mL (0.358-3.74); Triglycerides 165 mg/dL; Very Low Density Lipoprotein 33 mg/dL (5-40)
== END | disposition home or self-care (01) ==
LOC: MFPLAB 11:42
PROVIDERS: PCP Family Medicine; Visit Provider Family Medicine
DX: E83.52 Hypercalcemia (principal); M81.0 Age-related osteoporosis without current pathological fracture; Z13.220 Encounter for screening for lipoid disorders
CPT/HCPCS: 36415; 80048; 80061; 82306; 82330; 83970; 84443

== ENCOUNTER → 2022-09-13 | Outpatient (CLI) | payer OTHER, SELFPAY ==
--- NOTE | 2022-09-13 12:54 | CT_ITS ---
STUDY: CT ABDOMEN AND PELVIS WITH CONTRAST REASON FOR EXAM: Female, 57 years old. Partial bowel obstruction RADIATION DOSAGE (If Supplied By Facility): CTDIvol = ( 18.385 ) mGy, DLP = ( 859.18 ) mGycm TECHNIQUE: Transaxial images were obtained from the dome of the diaphragm to the symphysis pubis with oral contrast. Oral and amp; IV Gastrografin and amp; 100mL Isovue-370 was administered. Sagittal and coronal images were reconstructed. 3-D images were reconstructed. Individualized dose optimization techniques were used for this CT. COMPARISON: None. FINDINGS: The visualized lung bases are unremarkable. The visualized portions of the heart are within normal limits. Normal liver. Normal gallbladder and extrahepatic biliary system. Normal spleen. Normal pancreas. Normal bilateral adrenal glands. Normal right kidney. Normal left kidney. Normal visualized stomach. Mild degree of the inflammatory changes in the terminal ileum with evidence of narrowing of the terminal ileum. Inflammatory bowel disease should be ruled out. Surgical anastomosis seen in the region of the rectum. The appendix is visualized and appears normal. Normal abdominal aorta. Normal inferior vena cava. Normal retroperitoneum. Normal urinary bladder. The patient is status post hysterectomy. Normal abdominal wall. Normal osseous structures. CT/Abdomen/Pelvis WITH Contrast IMPRESSION: Mild degree inflammatory changes seen in the terminal ileum as described. Status post hysterectomy. Electronically Signed: Serge Hutchinson MD at 15:48 EST ,
== END | disposition home or self-care (01) ==
LOC: CT 12:53
PROVIDERS: PCP Family Medicine; Visit Provider Family Medicine
DX: K56.600 Partial intestinal obstruction, unspecified as to cause (principal); Z90.49 Acquired absence of other specified parts of digestive tract
CPT/HCPCS: 74177; Q9967

== ENCOUNTER → 2022-11-26 | Outpatient (CLI) | payer OTHER, SELFPAY ==
--- NOTE | 2022-11-26 07:14 | BI_ITS ---
MAMMOGRAPHY - BILATERAL SCREENING REASON FOR EXAM: Female, 57 years old. Routine annual screening examination. PERTINENT HISTORY: Personal history of breast cancer. Prior right lumpectomy and chemotherapy with radiation. TECHNIQUE: Digital bilateral breast vicenta (3D mammographic acquisition) in the CC and MLO projections. 2-D mediolateral oblique (MLO) and craniocaudad (CC) views of both breasts were obtained. CAD: Full Field Digital Mammography with Computer Added Detection was performed. COMPARISON: Comparison is made with prior examination dated November 25, 2021 and November 24, 2020. FINDINGS: Breast Composition: The breasts are heterogeneously dense, which may obscure small masses. There are no dominant masses or suspicious calcifications. The patient is status post lumpectomy in the deep upper lateral aspect of the right breast with resultant postoperative scarring and breast deformity. This is unchanged. Surgical clips are once again seen in the right axilla. No other significant abnormalities are identified. There has been no significant change since the prior study. BI/SCRN MAMM (CAD)W/IVCENTA BILAT IMPRESSION: Stable bilateral screening mammogram. Yearly follow-up mammogram recommended. (A) ASSESSMENT CATEGORY: BIRADS Category 2: Benign. A letter regarding these results will be sent to the patient by the facility within 30 days. Approximately 10% of breast cancers are not detected by mammography. A normal mammogram should not delay biopsy of a clinically suspicious abnormality. [id number] Electronically Signed: Serge Hutchinson MD at 9:37 EDT ,
== END | disposition home or self-care (01) ==
LOC: OPBI 07:12
PROVIDERS: PCP Family Medicine; Referring Provider Nurse Practitioner; Visit Provider Nurse Practitioner
DX: Z12.31 Encounter for screening mammogram for malignant neoplasm of breast (principal)
CPT/HCPCS: 77063; 77067

== ENCOUNTER → 2022-12-06 | Outpatient (CLI) | payer OTHER, SELFPAY ==
[2022-12-06] MEDS: 0.9% NaCl Peripheral Flush Adult/Peds IV (12:56)
[2022-12-06] MEDS: Zoledronic Acid 5 MG 100 ML 300 MG IV (12:57)
[2022-12-06 13:03] VITALS: BP 146/70; PULSE 84; RESP 16; O2SAT 99; BMI 28.1
[2022-12-06 13:25] VITALS: BP 142/68; PULSE 77
== END | disposition home or self-care (01) ==
LOC: MEDOUTP 12:38
PROVIDERS: PCP Family Medicine; Referring Provider Internal Medicine Endocrinology, Diabetes & Metabolism; Visit Provider Internal Medicine Endocrinology, Diabetes & Metabolism
DX: M81.0 Age-related osteoporosis without current pathological fracture (principal)
CPT/HCPCS: 96365; A4216; J3489